=== PATIENT | male | born 1950 | race Caucasian/White ===

== ENCOUNTER 2023-05-16 10:26 | Emergency (ER) | payer MEDICARE, SELFPAY ==
[2023-05-16] VITALS (23 sets, daily range): BP systolic 132–161; BP diastolic 83–93; PULSE 70–92; RESP 16–17; TEMP 36.7; O2SAT 95–99
--- NOTE | ~2023-05-16 | CT_ITS ---
EXAMINATION: CT facial & cervical spine wo DATE: 05/16/2023 10:58 INDICATION: Fall. Left eye bruising, swelling TECHNIQUE: Computed tomography (CT) of the facial bones and maxillofacial region and cervical spine w as performed without intravenous contrast. Automated exposure control and iterative reconstruction te chnique were employed. Exam dose: 372.32 mGy-cm total exam DLP. COMPARISON: 05/12/2023 CT brain FINDINGS: Prominent left frontal cephalohematoma and left periorbital edema. The frontozygomatic sutures, orbital rims and pichardo, zygomatic arches and maxillary and nasal bones a re intact, without fracture. Normal alignment at the temporomandibular joints. No mandibular fracture is evident. There is minimal mucoperiosteal thickening of the frontal sinuses, prominent patchy opacification of the ethmoid air cells and severe mucoperiosteal thickening of the maxillary sinuses. There is mild to moderate mucoperiosteal thickening of the sphenoid sinuses. The mastoid air cells are well-developed, mild effusions on the left. C1 and C2 are normally aligned and the odontoid process is intact. No fracture or dislocation or lock ed facet of the cervical spine is noted. Moderate degenerative disease with prominent posterior spurring is noted at C5-6 and C6-7. There is m inimal anterolisthesis mild degenerative disease at C7-T1. There is prominent degenerative change at the apophyseal joints and uncovertebral joint spurring at C 4-5 and particular C5-6 and C6-7. IMPRESSION: Prominent left frontal cephalohematoma and left periorbital hematoma No facial or cervical spine fracture Cervical spondylosis Reviewed, dictated and finalized at [facility]. Reviewed, dictated and finalized at location B. IMPRESSION: Prominent left frontal cephalohematoma and left periorbital hemato ma No facial or cervical spine fracture Cervical spondylosis
--- NOTE | ~2023-05-16 | CT_ITS ---
EXAMINATION: CT brain wo con DATE: 05/16/2023 10:58 INDICATION: Fall. Left eye swelling, bruising TECHNIQUE: Computed tomography (CT) of the head was performed without intravenous contrast. The mA wa s adjusted according to patient size. Iterative reconstruction technique was employed. Exam dose: 60 5.33 mGy-cm total exam DLP. COMPARISON: None FINDINGS: Prominent left periorbital and perinasal hematoma and left frontal cephalohematoma. No coup or contrecoup intracranial injury is noted. Bilateral carotid siphon internal carotid artery calcifications. There is nonspecific diminished atte nuation of the cerebral white matter, likely due to chronic small vessel ischemic change. No intracranial mass lesion or hemorrhage, midline shift shift or mass effect. Chronic bilateral frontal lobe areas of hypoattenuation consistent with encephalomalacia, possibly ol d cerebrovascular accidents or posttraumatic change. Otherwise no cerebrovascular accident is noted. No subdural or epidural hematoma. Moderate cerebral atrophy. Mild cerebellar atrophy. Mild left mastoid effusions. The right mastoid air cells are normally developed and aerated. There is patchy soft tissue thickening of the ethmoid air cells bilaterally. There is mild to moderat e mucoperiosteal thickening of the sphenoid sinuses. There is a linear nondepressed fracture of the left frontal bone. No other skull fracture or bone byron truction is detected. IMPRESSION: Left frontal skull fracture Prominent left frontal cephalohematoma, left periorbital hematoma Chronic areas of encephalomalacia in both frontal lobes which may be related to previous trauma or ce rebrovascular accidents Cerebral atherosclerosis and chronic small vessel ischemic changes of the cerebral white matter Reviewed, dictated and finalized at [facility]. Reviewed, dictated and finalized at location B. IMPRESSION: Left frontal skull fracture Prominent left frontal cephalohematoma, left periorbital hematoma Chronic areas of encephalomalacia in both frontal lobes which may be related to previous trauma or cerebrovascular accidents Cerebral atherosclerosis and chronic small vessel ischemic changes of the cereb ral white matter
--- NOTE | 2023-05-16 10:49 | ED.FALL ---
HPI - Fall General Chief Complaint: Fall Stated Complaint: fall/facial injury/blood thinners Time Seen by Provider: 05/16/23 10:41 History of Present Illness HPI Narrative: Pt presents with swelling and bruising to left eye after tripping and falling and landing on face on concrete. Pt denies LOC. Pt denies BUTLER. Pt left eyelid is swollen shut but eye is fine when eyelid opened. Pt denies neck pain. Related Data Allergies Allergy/AdvReac Type Severity Reaction Status Date / Time No Known Allergies Allergy Verified 05/16/23 10:39 Review of Systems Review of Systems: All systems reviewed & are unremarkable except as noted in HPI and below PMFSH Past Medical History Medical History Blood clots in biliary tract following procedure Deep vein blood clot of right lower extremity Surgical History Surgical History H/O cataract extraction 01-08-10 and 05-15-2009 Family History Family History Mother Diabetes mellitus Family history of elevated blood lipids Sibling Diabetes mellitus Father Family history of elevated blood lipids Social History Social History Smoking packs per day: 5 Smoking cigarettes per day: 100.0 Smoking status: Current every day smoker Second hand tobacco smoke exposure: No Alcohol intake: current Alcohol use details: Occasional Substance use: current Substance use type: does not use and marijuana Lack of Transportation: No Lack of Food: Never True Current Housing: I Have Housing Concerned About Future Housing: No Difficulty Paying Gas/Electric Bills: No Difficulty Paying for Meds: No Currently Unemployed: No Education: High School Diploma/GED Difficulty w/ Childcare or Family Care: No Living arrangements: alone Occupation/Education: retired 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 Gender identity (if verbalized by the patient): Male Spiritual care concerns: No Agree to blood products: Yes Exam Const: General: healthy appearing Nutritional Appearance: well nourished Orientation/consciousness: patient oriented x3 Limitations: no limitations HENMT: Head: contusion (left eyelid) Other: small puncture laceration 0.5 cm lateral cheek near eye that closes with swelling (pt does not wish to have this repaired) Eyes: Pupils: Equal, round and reactive pupils present EOM: EOMs intact bilaterally Neck: Neck: normal visual inspection Resp: Effort & Inspection: normal respiratory effort Auscultation: clear to auscultation bilaterally Cardio: Rate: regular rate Rhythm: regular rhythm GI: Auscultation: normal bowel sounds Skin: General skin exam: normal color Neuro: General: patient oriented x3 Cranial nerves: Yes Nystagmus not present Speech: normal speech Extrem: General: normal to inspection and no clubbing, cyanosis or edema Psych: Mental Status: mental status grossly normal Affect: normal affect Attitude: cooperative Course Vital Signs Vital signs: Vital Signs Temperature 98.0 F 05/16/23 10:32 Pulse Rate 92 05/16/23 10:32 Respiratory Rate 17 05/16/23 10:32 Blood Pressure 161/93 H 05/16/23 10:32 Pulse Oximetry 98 05/16/23 10:32 Oxygen Delivery Room Air 05/16/23 10:32 Temperature 98.0 F 05/16/23 10:32 Pulse Rate 70 05/16/23 13:46 Respiratory Rate 16 05/16/23 13:46 Blood Pressure 144/90 H 05/16/23 13:46 Pulse Oximetry 98 05/16/23 13:46 Oxygen Delivery Room Air 05/16/23 10:32 MDM - Fall Lab Data 05/16/23 11:09 05/16/23 11:09 Labs: Lab Results 05/16/23 Range/Units 11:09 WBC 6.5 (4.5-10.0) K/mm3 RBC 4.50 L (4.6-6.20) M/mm3 Hgb 14.4 (14.0-18.0) g/dL Hct 42.3 (42.0-52.0) % MCV 94.0 (8
[2023-05-16 11:15] LABS: Basophils Percent Auto 0.6 % (0.2-1.2); Eosinophils Absolute Auto 0.2 K/mm3 (0-0.3); Eosinophils Percent Auto 2.8 % (0-4.4); Hematocrit 42.3 % (42.0-52.0); Hemoglobin 14.4 g/dL (14.0-18.0); Immature Granulocyte Absolute 0.02 K/mm3 (0.00-0.031); Immature Granulocyte Percent A 0.3 % (0-0.5); Lymphocytes Absolute Auto 1.77 K/mm3 (0.9-3.2); Lymphocytes Percent Auto 27.4 % (18.3-44.2); Monocytes Absolute Auto 0.4 K/mm3 (0.1-0.6); Monocytes Percent Auto 6.5 % (2.6-8.5); Neutrophils Percent Auto 62.4 % (45.5-73.1); Platelet Count Result 194 k/mm3 (150-375); Red Cell Distribution Width 13.7 % (11.5-14.5); White Blood Count 6.5 K/mm3 (4.5-10.0)
[2023-05-16 11:25] LABS: Alanine Aminotransferase 28 U/L (6-50); Albumin Level 4.4 g/dL (3.5-5.1); Alkaline Phosphatase 43 U/L (38-126); Anion Gap 6 mmol/L (8-16); Aspartate Amino Transferase 35 U/L (17-59); Bilirubin,Total 0.6 mg/dL (0.2-1.3); Blood Urea Nitrogen 11 mg/dL (9-20); Calcium 8.8 mg/dL (8.4-10.2); Carbon Dioxide 30 mmol/L (22-30); Chloride 104 mmol/L (98-107); Estimated CRCL calculation 65 ml/min; Estimated Glomerular Filt Rate > 60; Glucose 91 mg/dL (65-110); Potassium 3.9 mmol/L (3.4-5.0); Sodium 140 mmol/L (137-145)
[2023-05-16 11:26] LABS: Prothrombin Time 13.4 Seconds (11.1-14.7)
[2023-05-16 11:27] LABS: Partial Thromboplastin Time 29.3 SECONDS (22.3-36.8)
== END 2023-05-16 13:59 | disposition home or self-care (01) ==
PROVIDERS: Emergency Provider Emergency Medicine; PCP Family Medicine
DX: S00.12XA Contusion of left eyelid and periocular area, initial encounter (principal); F17.210 Nicotine dependence, cigarettes, uncomplicated; Z86.718 Personal history of other venous thrombosis and embolism; Z98.42 Cataract extraction status, left eye; Z98.41 Cataract extraction status, right eye; W01.0XXA Fall on same level from slipping, tripping and stumbling without subsequent striking against object, initial encounter
CPT/HCPCS: 36415; 70450; 70486; 72125; 80053; 85025; 85610; 85730; 99284

== ENCOUNTER 2024-07-02 10:40 | Outpatient (CLI) | payer MEDICARE, SELFPAY ==
[2024-07-02 14:49] LABS: Alanine Aminotransferase 33 U/L (6-50); Albumin Level 4.2 g/dL (3.5-5.1); Alkaline Phosphatase 52 U/L (38-126); Anion Gap 6 mmol/L (4-12); Aspartate Amino Transferase 52 U/L (17-59); Bilirubin,Total 1.1 mg/dL (0.2-1.3); Blood Urea Nitrogen 16 mg/dL (9-20); Carbon Dioxide 32 mmol/L (22-30); Chloride 96 mmol/L (98-107); Cholesterol 204 mg/dL (0-200); Estimated Glomerular Filt Rate > 60; Glucose 108 mg/dL (65-110); HDL Direct 83 mg/dL; Potassium 4.1 mmol/L (3.4-5.0); Sodium 134 mmol/L (137-145); Triglycerides 63 mg/dL (<150)
[2024-07-02 14:53] LABS: Hematocrit 42.7 % (42.0-52.0); Hemoglobin 14.3 g/dL (14.0-18.0); Mean Corpuscular HGB Conc 33.5 g/dl (32-36); Mean Corpuscular Hemoglobin 32.1 pg (26-34); Mean Corpuscular Volume 95.7 fl (80-100); Mean Platelet Volume 10.9 fl (7.4-10.4); Platelet Count Result 180 k/mm3 (150-375); Red Blood Count 4.46 M/mm3 (4.6-6.20); White Blood Count 6.6 K/mm3 (4.5-10.0)
[2024-07-02 15:00] LABS: LDL Cholesterol Direct 98 mg/dL
[2024-07-02 15:17] LABS: Prostate Specific Antigen 2.9 ng/mL (< OR = 4.0)
[2024-07-02 16:57] LABS: Hemoglobin A1C 5.5 % (<5.7)
== END 2024-07-02 10:41 | disposition home or self-care (01) ==
LOC: ANHGOSHLAB 10:41
PROVIDERS: PCP Family Medicine; Visit Provider Nurse Practitioner
DX: Z12.5 Encounter for screening for malignant neoplasm of prostate (principal); R73.09 Other abnormal glucose; H61.23 Impacted cerumen, bilateral; Z79.899 Other long term (current) drug therapy
CPT/HCPCS: 36415; 80053; 80061; 83036; 84153; 85027; G0103

== ENCOUNTER 2024-11-06 15:28 | Outpatient (CLI) | payer MEDICARE, SELFPAY ==
[2024-11-06 19:17] LABS: Hematocrit 42.4 % (42.0-52.0); Hemoglobin 14.4 g/dL (14.0-18.0); Mean Corpuscular Hemoglobin 31.3 pg (26-34); Mean Corpuscular Volume 92.2 fl (80-100); Mean Platelet Volume 10.4 fl (7.4-10.4); Platelet Count Result 188 k/mm3 (150-375); Red Cell Distribution Width 13.4 % (11.5-14.5); White Blood Count 8.7 K/mm3 (4.5-10.0)
[2024-11-06 19:44] LABS: Alanine Aminotransferase 16 U/L (6-50); Albumin Level 4.1 g/dL (3.5-5.1); Alkaline Phosphatase 49 U/L (38-126); Anion Gap 5 mmol/L (4-12); Aspartate Amino Transferase 30 U/L (17-59); Bilirubin,Total 1.1 mg/dL (0.2-1.3); Blood Urea Nitrogen 15 mg/dL (9-20); Calcium 8.7 mg/dL (8.4-10.2); Carbon Dioxide 31 mmol/L (22-30); Chloride 99 mmol/L (98-107); Cholesterol 203 mg/dL (0-200); Estimated Glomerular Filt Rate > 60; Glucose 103 mg/dL (65-110); HDL Direct 68 mg/dL; Sodium 135 mmol/L (137-145); Triglycerides 106 mg/dL (<150)
[2024-11-06 19:55] LABS: LDL Cholesterol Direct 109 mg/dL
[2024-11-07 04:17] LABS: Hemoglobin A1C 5.6 % (<5.7)
== END 2024-11-06 15:29 | disposition home or self-care (01) ==
LOC: ANHGOSHLAB 15:29
PROVIDERS: PCP Family Medicine; Visit Provider Nurse Practitioner
DX: E78.5 Hyperlipidemia, unspecified (principal); R79.89 Other specified abnormal findings of blood chemistry; R73.09 Other abnormal glucose
CPT/HCPCS: 36415; 80053; 80061; 83036; 85027

== ENCOUNTER 2025-01-22 00:45 | Day surgery (SDC) | payer MEDICARE, SELFPAY ==
[2025-01-16 16:00] VITALS: BMI 27.2
--- NOTE | 2025-01-18 08:56 | SUR.PREOP ---
Spoke with patient regarding medication Eliquis_. Patient verbalizes understanding that the last dose is to be taken on 01/19/2025 and the Endoscopist will instruct them when to restart after the procedure.
--- OUTSIDE RECORDS SUMMARY | 2025-01-22 00:49 | XMS_ITS | Continuity of Care Document ---
Author Organization [facility] Address [address] [place] [address] Phone Care Team Providers Care Javascript Web Developer Name Role Phone Braden Montague Unavailable Unavailable Procedures Procedure Date Post-op Follow-up Visit Post-op Follow-up Visit Remove Cataract, Insert Lens Office/outpatient Visit, Est IOLMaster-Professional Post-op Follow-up Visit Post-op Follow-up Visit Remove Cataract, Insert Lens Office/outpatient Visit, Est IOLMaster Office/outpatient Visit, New Advance Directives Directive Yes / No Effective Date File Name No Information Encounters Encounter Description Practice Location Reason(s) For Visit Diagnoses Date Provider Providers Copied on Encounter [facility], [address] [place] [address] [address], [place], [place], [id number], [place] tel:[phone] [facility] No Information 0- 0 Krishnasamy Braden. [address] [facility] [address], [place], [address], [place]. tel:[phone] [facility], [address], [place], [place], [id number], [place] tel:[phone] [facility] No Information 9 0 Krishnasamy Braden. [address] [facility] [address], [place], [address], [place]. tel:[phone] [facility], [address], [place], [place], [id number], [place] tel:[phone] [facility] No Information 8-201 0 Krishnasamy Braden. [address] [facility] [address], [place], [address], [place]. tel:[phone] Office/outpat ient Visit, Est [facility], [address], [place], [place], [id number], [place] tel:[phone] [facility] No Information 0-201 0 Krishnasamy Braden. [facility] [address], [facility], [place]. tel:[phone] Referring Provider: Braden crowell, [address] [place] [address], [place], [address]. tel:[phone] [facility], [address], [place], [place], [id number], [place] tel:[phone] [facility] No Information May-0 5-200 9 Krishnasamy Braden. [facility] [address], [place], [address], [place]. tel:[phone] [facility], [address], [place], [place], [id number], [place] tel:[phone] [facility] No Information Apr-2 4-200 9 Krishnasamy Braden. [facility] [address], [place], [address], [place]. tel:[phone] [facility], [address], [place], [place], [id number], [place] tel:[phone] [facility] No Information Nasir-2 3-200 9 Eddi Mccoyhil. [address], [facility], . tel:[phone] Office/outpat ient Visit, [facility], [address] [place] [address] [address], [place], [place], [id number], tel:[phone] [facility] No Information 0200 9 Eddi Braden. [address] [place] [address], [facility], . tel:[phone] Referring Provider: Braden crowell, [address] [place] [address], [facility]. tel:[phone] Office/outpat ient Visit, [facility], [address] [place], [place] [address] [address], [place], [place], [id number], tel:[phone] [facility] No Information 9 Eddi Mccoyhil. [address] [place] [address], [facility], . tel:[phone] Family History Family Member Type Diagnosis Age At Onset No Information Payers Payer name Insurance type Covered alliance party ID Authoriza tion(s) No Information Social History Type Description Quantity Date Captured Comments Sex Male Smoking Status No Information Chief Complaint And Reason For Visit No Information Reason For Referral Reason For Referral No Information History Of Present Illness Encounter Date Complaint History Of Prese nt Illness No Information Functional Status Date Functional Assessmen t No Information Instructions Date Instruction Additional Infor mation No Information Assessments Type Assessment Date No Information Patient Care Teams Name Effective Dates (start - stop) Status Members No Information
[2025-01-22 10:45] VITALS: BP 160/73; PULSE 88; RESP 18; TEMP 36.2; O2SAT 98; BMI 25.5
[2025-01-22] MEDS: LACTATED RINGERS 1,000 ML 150 ML IV CONT (10:48)
--- NOTE | 2025-01-22 10:59 | WPDANESEPPF ---
Anes - Initial Pre Proc Eval Procedure: Operation Date: 01/22/25 12:00 Proposed Procedures p Screening Colonoscopy - Pratik Santiago MD Date/Time: 01/22/25 10:59 Surgeon: Pratik Santiago MD Pre Op Diagnosis: fecal abnormalites Patient Data Age: 74 Gender: M Height: 1.78 m Weight: 80.8 kg Last Vital Signs Temp 97.2 F L 01/22/25 10:45 Pulse 88 01/22/25 10:45 Resp 18 01/22/25 10:45 BP 160/73 H 01/22/25 10:45 Pulse Ox 98 01/22/25 10:45 O2 Del Method Room Air 01/22/25 10:45 Allergies Allergy/AdvReac Type Severity Reaction Status Date / Time No Known Allergies Allergy Verified 01/22/25 10:42 Home Medications ?Medication ?Instructions ?Recorded ?Confirmed ?Type apixaban 2.5 mg tablet (Eliquis) See Rx Instructions .Route 07/25/24 01/22/25 Rx .COMPLEX #180 tabs Patient hx anesthesia problems: none Family hx anesthesia problems: none Results Review: All pre-operative results and documents have been reviewed as part of the pre-operative evaluation. [facility] Past Medical History Medical History Blood clots in biliary tract following procedure Deep vein blood clot of right lower extremity Surgical History Surgical History H/O cataract extraction 01-08-10 and 05-15-2009 Family History Family History Mother Diabetes mellitus Family history of elevated blood lipids Sibling Diabetes mellitus Father Family history of elevated blood lipids Social History Social History Smoking packs per day: 0.5 Smoking cigarettes per day: 10.0 Years smoked: 50 Smoking pack-years: 25.00 Smoking status: Current every day smoker Tobacco type: cigarettes Second hand tobacco smoke exposure: No Alcohol intake: current Alcohol use details: Occasional Substance use: current Substance use type: marijuana Other substance usage details: daily Lack of Transportation: No Lack of Food: Never True Current Housing: I Have Housing Concerned About Future Housing: No Difficulty Paying Gas/Electric Bills: No Difficulty Paying for Meds: No Currently Unemployed: No Education: High School Diploma/GED Difficulty w/ Childcare or Family Care: No Living arrangements: alone Occupation/Education: retired 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 HTN, COPD smokes 1/2 ppd, smoked 2 cigs this am, hx of DVT on AC, held for this procedure. Informed Consent: The patient's anesthetic plan and its attendant risks and benefits were discussed with the patient/family/POA. Questions were solicited and answers provided to the satisfaction of the patient/family/POA.
--- NOTE | 2025-01-22 11:10 | PM.HPGS ---
History of Present Illness History of Present Illness Consent: Risks, benefits, and alternatives have been discussed and questions answered. Patient agrees to proceed with procedure. Chief complaint: fecal abnormalites Narrative: Mike Jimenez Sr. is a 74 year old male here for first colonoscopy, had + cologuard Review of Systems Review of Systems: All systems reviewed & are unremarkable except as noted in HPI and below PMFSH Past Medical History Medical History Blood clots in biliary tract following procedure Deep vein blood clot of right lower extremity Surgical History Surgical History H/O cataract extraction 01-08-10 and 05-15-2009 Family History Family History Mother Diabetes mellitus Family history of elevated blood lipids Sibling Diabetes mellitus Father Family history of elevated blood lipids Social History Social History Smoking packs per day: 0.5 Smoking cigarettes per day: 10.0 Years smoked: 50 Smoking pack-years: 25.00 Smoking status: Current every day smoker Tobacco type: cigarettes Second hand tobacco smoke exposure: No Alcohol intake: current Alcohol use details: Occasional Substance use: current Substance use type: marijuana Other substance usage details: daily Lack of Transportation: No Lack of Food: Never True Current Housing: I Have Housing Concerned About Future Housing: No Difficulty Paying Gas/Electric Bills: No Difficulty Paying for Meds: No Currently Unemployed: No Education: High School Diploma/GED Difficulty w/ Childcare or Family Care: No Living arrangements: alone Occupation/Education: retired 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 Gender identity (if verbalized by the patient): Male Spiritual care concerns: No Agree to blood products: Yes Meds Home Medications and Allergies Home Medications ?Medication ?Instructions ?Recorded ?Confirmed ?Type apixaban 2.5 mg tablet (Eliquis) See Rx Instructions .Route 07/25/24 01/22/25 Rx .COMPLEX #180 tabs Allergies Allergy/AdvReac Type Severity Reaction Status Date / Time No Known Allergies Allergy Verified 01/22/25 10:42 Vital Signs Vital Signs - 24 hr 01/22/25 10:45 Temperature 97.2 F L Pulse Rate 88 Respiratory Rate 18 Blood Pressure 160/73 H Pulse Oximetry 98 Oxygen Delivery Room Air Exam Const: General: comfortable and no acute distress HENMT: Face/Nose/Sinus: Normal nares present Eyes: General: appearance normal, both eyes and all related structures Neck: Neck: no JVD Resp: Auscultation: clear to auscultation bilaterally Cardio: Rate: regular rate Rhythm: regular rhythm GI: Inspection: non-distended GI Palp: Yes Soft to palpation Skin: General skin exam: normal color Neuro: Speech: normal speech Extrem: General: normal to inspection Psych: Mental Status: mental status grossly normal Assessment and Plan Assessment and plan (1) Positive colorectal cancer screening using Cologuard test: Code(s): R19.5 - Other fecal abnormalities Status: Acute Assessment and Plan: colonoscopy
[2025-01-22 11:25] VITALS: BP 96/62; PULSE 60; RESP 25; O2SAT 97
[2025-01-22 11:35] VITALS: BP 121/80; PULSE 58; RESP 18; O2SAT 99
[2025-01-22 11:45] VITALS: BP 131/74; PULSE 59; RESP 21; O2SAT 99
== END 2025-01-22 11:57 | disposition home or self-care (01) ==
PROVIDERS: PCP Family Medicine; Referring Provider Family Medicine; Visit Provider Internal Medicine Gastroenterology
PROC: 0DJD8ZZ Inspection of Lower Intestinal Tract, Via Natural or Artificial Opening Endoscopic (ICD-10-PCS; CPT 45378; principal; 2025-01-22 12:00)
DX: D12.3 Benign neoplasm of transverse colon (principal); K63.5 Polyp of colon; K64.8 Other hemorrhoids; K57.30 Diverticulosis of large intestine without perforation or abscess without bleeding; I10 Essential (primary) hypertension; J44.9 Chronic obstructive pulmonary disease, unspecified; F17.210 Nicotine dependence, cigarettes, uncomplicated; F12.90 Cannabis use, unspecified, uncomplicated; Z79.01 Long term (current) use of anticoagulants; Z98.890 Other specified postprocedural states; Z86.718 Personal history of other venous thrombosis and embolism
CPT/HCPCS: 45385; 88305; J2004; J2704; J7120

== ENCOUNTER 2025-05-02 15:29 | Outpatient (CLI) | payer MEDICARE, SELFPAY ==
--- OUTSIDE RECORDS SUMMARY | 2025-05-02 15:33 | XMS_ITS | Continuity of Care Document ---
Author Organization [facility] Address [address] [place] [address] Phone Care Team Providers Care Band Ripsaw Operator Name Role Phone Braden Montague Unavailable Unavailable [...] Diagnoses Date Provider Providers Copied on Encounter [facility], [address] [place] [address] [address], [place], [place], [id number], [place] tel:[phone] [facility] No Information 0- 0 Krishnasamy Braden. [address] [facility] [address], [place], [address], [place]. tel:[phone] [facility], [address], [place], [place], [id number], [place] tel:[phone] [facility] No Information 9 0 Krishnasamy Braden. [address] [facility] [address], [place], [address], [place]. tel:[phone] [facility], [address], [place], [place], [id number], [place] tel:[phone] [facility] No Information 8-201 0 Krishnasamy Braden. [address] [facility] [address], [place], [address], [place]. tel:[phone] Office/outpat ient Visit, Est [facility], [address], [place], [place], [id number], [place] tel:[phone] [facility] No Information 0-201 0 Krishnasamy Braden. [facility] [address], [facility], [place]. tel:[phone] Referring Provider: Braden crowell, [address] [place] [address], [place], [address]. tel:[phone] [facility], [address], [place], [place], [address], [place] tel:[phone] [facility] No Information May-0 5-200 9 Krishnasamy Braden. [facility] [address], [place], [address], [place]. tel:[phone] [facility], [address], [place], [place], [address], [place] tel:[phone] [facility] No Information Apr-2 4-200 9 Krishnasamy Braden. [facility] [address], [place], [address], [place]. tel:[phone] [facility], [address], [place], [place], [address], [place] tel:[phone] [facility] No Information Nasir-2 3-200 9 Eddi Mccoyhil. [address], [facility], . tel:[phone] Office/outpat ient Visit, [facility], [address] [place] [address] [address], [place], [place], [id number], tel:[phone] [facility] No Information 0200 9 Eddi Braden. [address] [place] [address], [facility], . tel:[phone] Referring Provider: Braden crowell, [address] [place] [address], [facility]. tel:[phone] Office/outpat ient Visit, [facility], [address] [place], [place] [address], [place], [place], [id number], tel:[phone] [facility] No Information 9 Eddi Mccoyhil. [address] [place] [address], [facility], . tel:[phone] Family History Family Member Type Diagnosis Age [...]
[2025-05-02 19:00] LABS: Alanine Aminotransferase 26 U/L (6-50); Albumin Level 4.0 g/dL (3.5-5.1); Alkaline Phosphatase 53 U/L (38-126); Anion Gap 6 mmol/L (4-12); Aspartate Amino Transferase 38 U/L (17-59); Bilirubin,Total 0.7 mg/dL (0.2-1.3); Blood Urea Nitrogen 16 mg/dL (9-20); Calcium 9.4 mg/dL (8.4-10.2); Carbon Dioxide 31 mmol/L (22-30); Chloride 99 mmol/L (98-107); Cholesterol 221 mg/dL (0-200); Estimated Glomerular Filt Rate > 60; Glucose 94 mg/dL (65-110); HDL Direct 87 mg/dL; Potassium 4.1 mmol/L (3.4-5.0); Sodium 136 mmol/L (137-145); Total Protein 6.8 g/dL (6.3-8.2); Triglycerides 85 mg/dL (<150)
[2025-05-02 21:46] LABS: Prostate Specific Antigen 3.0 ng/mL (< OR = 4.0); Thyroid Stimulating Hormone 2.220 uIU/mL (0.465-4.680)
== END 2025-05-02 15:30 | disposition home or self-care (01) ==
PROVIDERS: PCP Family Medicine; Visit Provider Nurse Practitioner
DX: E78.00 Pure hypercholesterolemia, unspecified (principal); E03.9 Hypothyroidism, unspecified; Z12.5 Encounter for screening for malignant neoplasm of prostate
CPT/HCPCS: 36415; 80053; 80061; 84153; 84443; G0103

== ENCOUNTER 2025-10-15 10:36 | Outpatient (CLI) | payer MEDICARE, SELFPAY ==
[2025-10-15 13:35] LABS: Alanine Aminotransferase 33 U/L (6-50); Albumin Level 4.2 g/dL (3.5-5.1); Alkaline Phosphatase 65 U/L (38-126); Anion Gap 6 mmol/L (4-12); Aspartate Amino Transferase 56 U/L (17-59); Bilirubin,Total 0.8 mg/dL (0.2-1.3); Blood Urea Nitrogen 14 mg/dL (9-20); Calcium 9.5 mg/dL (8.4-10.2); Carbon Dioxide 31 mmol/L (22-30); Chloride 99 mmol/L (98-107); Cholesterol 227 mg/dL (0-200); Estimated Glomerular Filt Rate > 60; Glucose 118 mg/dL (65-110); HDL Direct 105 mg/dL; Potassium 4.3 mmol/L (3.4-5.0); Sodium 136 mmol/L (137-145); Total Protein 7.0 g/dL (6.3-8.2); Triglycerides 57 mg/dL (<150)
[2025-10-15 13:45] LABS: Hemoglobin A1C 5.5 % (<5.7)
== END 2025-10-15 10:37 | disposition home or self-care (01) ==
PROVIDERS: PCP Family Medicine; Visit Provider Nurse Practitioner
DX: E78.5 Hyperlipidemia, unspecified (principal); I10 Essential (primary) hypertension; R73.09 Other abnormal glucose; Z11.59 Encounter for screening for other viral diseases
CPT/HCPCS: 36415; 80053; 80061; 83036